=== PATIENT | female | born 1985 | race Caucasian/White ===

== ENCOUNTER 2017-07-18 11:50 | Inpatient (IN) | payer OTHER ==
[2017-07-18] MEDS ORDERED: Sodium Chloride 0.9% 10 ML Syringe FLUSH PRN (12:42)
[2017-07-18] MEDS ORDERED: Ondansetron 4 MG/2 ML SDV IVPUSH PRN (12:42)
[2017-07-18] MEDS ORDERED: Nalbuphine 20 MG/1 ML Amp IVPUSH PRN (12:42)
--- NOTE | 2017-07-18 12:42 | PCM.LDHP ---
L&D History of Present Illness - General Date of Service: 07/18/17 Admit Problem/Dx: Admission Diagnosis/Problem Admission Diagnosis/Problem Source of Information: Patient History Limitations: Reports: No Limitations - History of Present Illness Introduction:: Patient is a 32 y/o at 40 4/7 wks who presents for SROM. This occurred at about 0700 this morning. Has had minimal contractions since then. Otherwise doing well. 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: : 2 Para: 0 LMP (Approximate): Psychiatric History: Reports: Depression - Past Surgical History HEENT Surgical History: Reports: Tonsillectomy, Other (See Below) (rhinoplasty) Female Surgical History: Reports: Cystoscopy Social & Family History - Tobacco Use Smoking Status *Q: Former Smoker - Alcohol Use Alcohol Use History: No - Recreational Drug Use Recreational Drug Use: No H&P Review of Systems - Review of Systems: Review Of Systems: See Below General: Reports: No Symptoms Pulmonary: Reports: No Symptoms Cardiovascular: Reports: No Symptoms Gastrointestinal: Reports: No Symptoms Genitourinary: Reports: No Symptoms Musculoskeletal: Reports: No Symptoms Psychiatric: Reports: No Symptoms L&D Exam - Exam Exam: See Below - Vital Signs Vital Signs: Last Vital Signs Temp 36.9 C 07/18/17 12:31 Pulse 109 H 07/18/17 12:31 Resp 15 07/18/17 12:31 BP 143/94 H 07/18/17 12:31 Pulse Ox Weight: 86.001 kg - OB Specific Contraction Intensity: Irritability Movement: Active Heart Tones: Present Heart Tones per Min: 140 Heart Rate (FHR) Variability: Moderate (6-25 bmp) Presentation: Vertex - Izquierdo Score Izquierdo Score Cervix Position: Posterior Izquierdo Score Consistency: Soft Izquierdo Score Effacement: 51-70% Izquierdo Score Dilation: 1-2 cm Izquierdo Score Infant's Station: -2 Izquierdo Score Total: 6 - Exam General: Alert, Oriented, Cooperative Lungs: Clear to Auscultation, Normal Respiratory Effort Cardiovascular: Regular Rate, Regular Rhythm GI/Abdominal Exam: Soft, Non-Tender Genitourinary: Normal external exam Extremities: Normal Inspection Skin: Warm, Dry, Intact - Patient Data Result Diagrams: 07/18/17 13:00 - Problem List (1) 40 weeks gestation of SNOMED Code(s): 40783811 ICD Code: Z3A.40 - 40 WEEKS GESTATION OF Status: Acute Current Visit: Yes (2) PROM (premature rupture of membranes) SNOMED Code(s): 17621941 ICD Code: O42.90 - MARIANNE ROM, 7TH0 BETW RUPT & ONST LABR, UNSP WEEKS OF GEST Status: Acute Current Visit: Yes Qualifiers: PROM onset of labor timing: unspecified duration between rupture of membranes and onset of labor PROM gestational age: full term Qualified Code( s): O42.92 - Full-term premature rupture of membranes, unspecified as to length of time between rupture and onset of labor Problem List Initiated/Reviewed/Updated: Yes Assessment/Plan Comment:: 32 y/o at 40 4/7 wks who presents for SROM * Discussed with patient possibility of augmentation, but she declines at this time. Would like to wait a few more hours. If no painful contractions at that time have asked her to let us start pitocin to decrease duration of ROM and decrease chance of developing an infection * CBC and T&S * Pain management per patient preference * plan reviewed * Anticipate
[2017-07-18] MEDS ORDERED: Oxytocin/Lactated Ringers 10 UNIT/1,000 ML BAG IV SCH ×2 (12:45→16:30)
[2017-07-18] MEDS: Lactated Ringers 1,000 ML IV SCH (16:58)
--- NOTE | 2017-07-18 18:39 | PCM.SN ---
- Free Text/Narrative Note: 1600 Discussion held with patient in regards to contractions. Still not feeling much for contractions. Willing to proceed with pitocin augmentation at this time. Risks/benefits reviewed. Patient to let me know if any additional questions or concerns. Delphine Carroll MD
[2017-07-19] MEDS ORDERED: fentaNYL 100 MCG/2 ML SDV EPIDUR PRN (03:06)
[2017-07-19] MEDS ORDERED: Ondansetron 4 MG/2 ML SDV IVPUSH PRN (03:06)
[2017-07-19] MEDS ORDERED: ePHEDrine 50 MG/ML SDV IVPUSH PRN (03:06)
[2017-07-19] MEDS ORDERED: diphenhydrAMINE 50 MG/ML SDV IVPUSH PRN (03:06)
--- NOTE | 2017-07-19 03:25 | PCM.SN ---
- Free Text/Narrative Note: 0300 Patient complete. Now requesting epidural. Anesthesia here to assess patient. FHR 125, moderate variability, + accelerations, no decelerations. [place] q3-4. Anticipate Delphine Carroll MD
[2017-07-19] MEDS: Bupivacaine/fentaNYL/NS 100 ML Bag EPIDUR SCH ×2 (03:50→09:15)
--- NOTE | 2017-07-19 04:11 | PCM.PREANE ---
Preanesthetic Assessment - Procedure Proposed Procedure: CIARRA - Anesthesia/Transfusion/Family Hx Anesthesia History: Prior Anesthesia Without Reaction Family History of Anesthesia Reaction: No Transfusion History: No Prior Transfusion(s) Intubation History: Unknown Additional History: Patient does seem to have scoliosis with leftward rotation - Review of Systems General: No Symptoms Pulmonary: No Symptoms Cardiovascular: No Symptoms Gastrointestinal: No Symptoms Neurological: No Symptoms Other: Reports: None - Physical Assessment NPO Status Date: 07/19/17 NPO Status Time: 02:00 Respiratory Rate: 15 Vital Signs: Last Vital Signs Temp 36.9 C 07/18/17 12:31 Pulse 109 H 07/18/17 12:31 Resp 15 07/18/17 12:31 BP 143/94 H 07/18/17 12:31 Pulse Ox Height: 1.75 m Weight: 86.001 kg ASA Class: 2 Mental Status: Alert & Oriented x3 Airway Class: Mallampati = 2 Dentition: Reports: Normal Dentition Thyro-Mental Finger Breadths: 3 Mouth Opening Finger Breadths: 3 ROM/Head Extension: Full Lungs: Clear to Auscultation, Normal Respiratory Effort Cardiovascular: Regular Rate, Regular Rhythm - Lab Values: Laboratory Last Values WBC 9.44 K/mm3 (3.98-10.04) 07/18/17 13:00 RBC 3.71 M/mm3 (3.98-5.22) L 07/18/17 13:00 Hgb 12.1 gm/L (11.2-15.7) 07/18/17 13:00 Hct 35.7 % (34.1-44.9) 07/18/17 13:00 MCV 96.2 fl (79.4-94.8) H 07/18/17 13:00 MCH 32.6 pg (25.6-32.2) H 07/18/17 13:00 MCHC 33.9 g/dl (32.2-35.5) 07/18/17 13:00 RDW Std Deviation 41.9 fL (36.4-46.3) 07/18/17 13:00 Plt Count 179 K/mm3 (182-369) L 07/18/17 13:00 MPV 10.6 fl (9.4-12.3) 07/18/17 13:00 Blood Type O POSITIVE 07/18/17 13:00 Gel Antibody Screen Negative 07/18/17 13:00 - Allergies Allergies/Adverse Reactions: Allergies Allergy/AdvReac Type Severity Reaction Status Date / Time No Known Allergies Allergy Verified 07/18/17 12:33 - Blood Blood Available: No Product(s) Available: None - Anesthesia Plan Pre-Op Medication Ordered: None - Acknowledgements Anesthesia Type Planned: Epidural Pt an Appropriate Candidate for the Planned Anesthesia: Yes Alternatives and Risks of Anesthesia Discussed w Pt/Guardian: Yes Pt/Guardian Understands and Agrees with Anesthesia Plan: Yes 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: Psychiatric History: Reports: Depression - Past Surgical History HEENT Surgical History: Reports: Tonsillectomy, Other (See Below) (rhinoplasty) Female Surgical History: Reports: Cystoscopy - SUBSTANCE USE Smoking Status *Q: Former Smoker Tobacco Use Within Last Twelve Months: Cigarettes Recreational Drug Use History: No - HOME MEDS Home Medications: Home Meds Fish Oil/[place]-3 Fatty Acids [Fish Oil 1,000 MG] 07/18/17 [History] L.acidoph,Paracasei, B.lactis [Probiotic] 1 each PO 07/18/17 [History] Vits #93/Iron Fum/FA [ Formula Tablet] 07/18/17 [History] - CURRENT (IN HOUSE) MEDS Current Meds: Current Medications Diphenhydramine HCl (Benadryl) 25 mg IVPUSH Q6H PRN PRN Reason: Pruritis Ephedrine Sulfate (Ephedrine Sulfate) 5 mg IVPUSH ASDIRECTED PRN PRN Reason: Hypotension Fentanyl (Sublimaze) 100 mcg EPIDUR Q3H PRN PRN Reason: Pain Last Admin: 07/19/17 03:49 Dose: 100 mcg Fentanyl/Bupivacaine HCl (Fentanyl/Bupivacaine/Ns 2 Mcg-0.125% 100 Ml) 100 ml EPIDUR ASDIRECTED CITLALLI Last Admin: 07/19/17 03:50 Dose: 100 ml Lactated Ringer's (Ringers, Lactated) 1,000 mls @ 30 mls/hr IV ASDIRECTED CITLALLI Last Infusion: 07/18/17 21:37 Dose: 0 mls/hr Oxytocin/Lactated Ringer's (Pitocin In Lr 10 Units/1,000 Ml) 10 unit in 1,000 mls @ 500 mls/hr IV .CONTINUOUS CITLALLI Oxytocin/Lactated Ringer's (Pitocin In Lr 10 Units/1,000 Ml) 10 unit in 1,000 mls @ 12 mls/hr IV TITRATE CITLALLI; 2 MUNITS/MIN PRN Reason: Protocol Last Titration: 07/18/17 21:15 Dose: 6 munits/min, 36 mls/hr Nalbuphine HCl (Nubain) 10 mg IVPUSH Q2H PRN PRN Reason: Pain (moderate 4-6) Ondansetron HCl (Zofran) 4 mg IVPUSH Q4H PRN PRN Reason: Nausea/Vomiting Ondansetron HCl (Zofran) 4 mg IVPUSH ONETIME PRN PRN Reason: Nausea/Vomiting Sodium Chloride (Saline Flush) 10 ml FLUSH ASDIRECTED PRN PRN Reason: Keep Vein Open
--- NOTE | 2017-07-19 04:57 | PCM.PNLD ---
Labor Progress Note - VS & Meds Vital Signs: Last Vital Signs Temp 36.9 C 07/18/17 12:31 Pulse 109 H 07/18/17 12:31 Resp 15 07/19/17 04:10 BP 143/94 H 07/18/17 12:31 Pulse Ox Active Medications: Current Medications Diphenhydramine HCl (Benadryl) 25 mg IVPUSH Q6H PRN PRN Reason: Pruritis Ephedrine Sulfate (Ephedrine Sulfate) 5 mg IVPUSH ASDIRECTED PRN PRN Reason: Hypotension Fentanyl (Sublimaze) 100 mcg EPIDUR Q3H PRN PRN Reason: Pain Last Admin: 07/19/17 03:49 Dose: 100 mcg Fentanyl/Bupivacaine HCl (Fentanyl/Bupivacaine/Ns 2 Mcg-0.125% 100 Ml) 100 ml EPIDUR ASDIRECTED CITLALLI Last Admin: 07/19/17 03:50 Dose: 100 ml Lactated Ringer's (Ringers, Lactated) 1,000 mls @ 30 mls/hr IV ASDIRECTED CITLALLI Last Infusion: 07/18/17 21:37 Dose: 0 mls/hr Oxytocin/Lactated Ringer's (Pitocin In Lr 10 Units/1,000 Ml) 10 unit in 1,000 mls @ 500 mls/hr IV .CONTINUOUS CITLALLI Oxytocin/Lactated Ringer's (Pitocin In Lr 10 Units/1,000 Ml) 10 unit in 1,000 mls @ 12 mls/hr IV TITRATE CITLALLI; 2 MUNITS/MIN PRN Reason: Protocol Last Titration: 07/18/17 21:15 Dose: 6 munits/min, 36 mls/hr Nalbuphine HCl (Nubain) 10 mg IVPUSH Q2H PRN PRN Reason: Pain (moderate 4-6) Ondansetron HCl (Zofran) 4 mg IVPUSH Q4H PRN PRN Reason: Nausea/Vomiting Ondansetron HCl (Zofran) 4 mg IVPUSH ONETIME PRN PRN Reason: Nausea/Vomiting Sodium Chloride (Saline Flush) 10 ml FLUSH ASDIRECTED PRN PRN Reason: Keep Vein Open - Uterine Contractions Uterine Monitoring Mode: External [place] Contraction Intensity: Moderate - Monitoring Monitor Mode: External Ultrasound Heart Rate (FHR) Baseline: 125 Heart Rate (FHR) Variability: Moderate (6-25 bmp) Accelerations: Present, 15x15 Decelerations: None Strip Review: Category I - Vaginal Exam Dilation (cm): 3-4 Effacement (Percent): 80 Station: 0 Cervical Position: Midposition - Labor Progress (Free Text) Labor Progress: Patient thought to be complete by nursing at about 315 and received an epidural. I just checked patient and found her to be 3-4 cm and 80%. Likely due to her pain and thin cervix pervious examiner thought she was complete. Continue pitocin per protocol. Currently at 6. Will sign out to yardage caller physician Dr. Sandoval in the AM.
[2017-07-19] MEDS: Lactated Ringers 1,000 ML IV SCH ×2 (05:05→06:46)
--- NOTE | 2017-07-19 11:38 | PCM.DEL ---
L & D Note - General Info Date of Service: 07/19/17 Mother's Due Date: 07/14/17 - Delivery Note Labor: Augmented by Oxytocin Delivery Outcome: Livebirth Infant Delivery Method: Spontaneous Vaginal Delivery-Single Presentation: Left Occiput Anterior (GARY) Nuchal Cord: None Prep: Povidone-Iodine (Betadine Anesthesia Type: Epidural Amniotic Fluid Description: Clear Episiotomy Type: None Laceration: 2nd Degree, Perineal (Second-degree midline repaired with 3-0 Vicryl ), Vaginal (First-degree Right sided vaginal repaired with 3-0 Vicryl) Suture type: Vicryl Suture size: 3-0 Placenta: Spontaneous, Manual Removal, Retained, Partial (2 small retained portions of the placenta removed manually) Cord: 3 Vessels Estimated Blood Loss: 400 : Bulb Syringe, Stimulated, Warmed, [place] Used Provider: Jeff Mars Score 1 min: 7 Score 5 min: 9 Post Delivery Events: Retained Placenta (Spontaneous delivery of the placenta with several small retained pieces that were manually removed.) Second Stage Interventions: Reports: Pushing Effectively, Pushing, Knee Chest Position Delivery Comments (Free Text/Narrative):: Stage I: Sherine Rogers was admitted for spontaneous rupture membranes on 07/18. On admission her cervix was dilated to 1 cm. She was GBS negative. She was having minimal contractions on admission and plan was discussed for augmentation of labor with Pitocin the patient initially declined. At approximately 1700 hrs. she accepted Pitocin augmentation. She was given an epidural for anesthesia. She was thought to be complete in the morning of hospital day #2 but on exam she was dilated to 3 cm with thinning of the cervix. Pitocin was continued for augmentation. She progressed to complete and pushing. Stage II: On 07/19/2017 she had a normal vaginal delivery of a live female at 1023. Apgars of 7 & 9. Weight of 3650 g (8 lbs 0.3 oz). Length was unavailable at time of the note. There was no nuchal cord. Infant was delivered in GARY position. The cord was doubly clamped and cut by father of the baby. Infant was placed on mother's abdomen. Stage III: She had a spontaneous delivery of an partial placenta in [place] presentation. There were several small pieces of retained placenta that were manually removed. Three vessel cord. She was given pitocin and fundal massage. She had a second-degree midline perineal and first-degree right sided vaginal wall laceration that were both repaired with 3-0 Vicryl. She had large amount of clot in the uterus after the repair that was manually removed and expressed. Mom and baby were stable to recovery. EBL of 400 mL. Gabe Sandoval MD 11:52 AM 07/19/2017 - Patient Data Vitals - Most Recent: Last Vital Signs Temp 36.9 C 07/18/17 12:31 Pulse 109 H 07/18/17 12:31 Resp 15 07/19/17 04:10 BP 143/94 H 07/18/17 12:31 Pulse Ox Weight - Most Recent: 86.001 kg I&O - Last 24 Hours: Intake & Output 07/18/17 07/19/17 07/19/17 22:59 06:59 14:59 Intake Total 0 Balance 0 Lab Results Last 24 Hours: Laboratory Results - last 24 hr 07/18/17 07/18/17 Range/Units 13:00 13:00 WBC 9.44 (3.98-10.04) K/mm3 RBC 3.71 L (3.98-5.22) M/mm3 Hgb 12.1 (11.2-15.7) gm/L Hct 35.7 (34.1-44.9) % MCV 96.2 H (79.4-94.8) fl MCH 32.6 H (25.6-32.2) pg MCHC 33.9 (32.2-35.5) g/dl RDW Std Deviation 41.9 (36.4-46.3) fL Plt Count 179 L (182-369) K/mm3 MPV 10.6 (9.4-12.3) fl Blood Type O POSITIVE Gel Antibody Screen Negative Med Orders - Current: Current Medications Diphenhydramine HCl (Benadryl) 25 mg IVPUSH Q6H PRN PRN Reason: Pruritis Ephedrine Sulfate (Ephedrine Sulfate) 5 mg IVPUSH ASDIRECTED PRN PRN Reason: Hypotension Fentanyl (Sublimaze) 100 mcg EPIDUR Q3H PRN PRN Reason: Pain Last Admin: 07/19/17 03:49 Dose: 100 mcg Fentanyl/Bupivacaine HCl (Fentanyl/Bupivacaine/Ns 2 Mcg-0.125% 100 Ml) 100 ml EPIDUR ASDIRECTED CITLALLI Last Admin: 07/19/17 09:15 Dose: 100 ml Lactated Ringer's (Ringers, Lactated) 1,000 mls @ 30 mls/hr IV ASDIRECTED CITLALLI Last Admin: 07/19/17 06:46 Dose: 999 mls/hr Oxytocin/Lactated Ringer's (Pitocin In Lr 10 Units/1,000 Ml) 10 unit in 1,000 mls @ 500 mls/hr IV .CONTINUOUS CITLALLI Oxytocin/Lactated Ringer's (Pitocin In Lr 10 Units/1,000 Ml) 10 unit in 1,000 mls @ 12 mls/hr IV TITRATE CITLALLI; 2 MUNITS/MIN PRN Reason: Protocol Last Titration: 07/19/17 09:11 Dose: 9 munits/min, 54 mls/hr Nalbuphine HCl (Nubain) 10 mg IVPUSH Q2H PRN PRN Reason: Pain (moderate 4-6) Ondansetron HCl (Zofran) 4 mg IVPUSH Q4H PRN PRN Reason: Nausea/Vomiting Ondansetron HCl (Zofran) 4 mg IVPUSH ONETIME PRN PRN Reason: Nausea/Vomiting Sodium Chloride (Saline Flush) 10 ml FLUSH ASDIRECTED PRN PRN Reason: Keep Vein Open - Problem List & Annotations (1) Vaginal delivery SNOMED Code(s): 050362435 Code(s): O80 - ENCOUNTER FOR FULL-TERM UNCOMPLICATED DELIVERY Status: Acute Current Visit: Yes (2) Second degree laceration of perineum, delivered, current hospitalization SNOMED Code(s): 008465151 Code(s): O70.1 - SECOND DEGREE PERINEAL LACERATION DURING DELIVERY Status: Acute Current Visit: Yes (3) First degree laceration of perineum, delivered, current hospitalization SNOMED Code(s): 105495000 Code(s): O70.0 - FIRST DEGREE PERINEAL LACERATION DURING DELIVERY Status: Acute Current Visit: Yes (4) 40 weeks gestation of SNOMED Code(s): 14576622 Code(s): Z3A.40 - 40 WEEKS GESTATION OF Status: Acute Current Visit: Yes (5) PROM (premature rupture of membranes) SNOMED Code(s): 07465340 Code(s): O42.90 - MARIANNE ROM, 7TH0 BETW RUPT & ONST LABR, UNSP WEEKS OF GEST Status: Acute Current Visit: Yes Qualifiers: PROM onset of labor timing: unspecified duration between rupture of membranes and onset of labor PROM gestational age: full term Qualified Code( s): O42.92 - Full-term premature rupture of membranes, unspecified as to length of time between rupture and onset of labor - Problem List Review Problem List Initiated/Reviewed/Updated: Yes - My Orders Last 24 Hours: My Active Orders 07/19/17 11:24 Patient Status Manage Transfer [TRANSFER] Routine - Assessment Assessment:: Patient doing well after delivery. Patient had small amount of retained placenta that was removed manually. There was moderate amount of clot within the uterus after repair of the perineal lacerations that was manually removed and expressed. Total blood loss estimated at 400 mL's. Plan to repeat CBC at approximately 1700 hrs. Assist patient with breast-feeding as needed. - Plan Plan:: 32 y/o at 40 4/7 wks who presents for SROM * Discussed with patient possibility of augmentation, but she declines at this time. Would like to wait a few more hours. If no painful contractions at that time have asked her to let us start pitocin to decrease duration of ROM and decrease chance of developing an infection * CBC and T&S * Pain management per patient preference * plan reviewed * Anticipate
[2017-07-19] MEDS ORDERED: Oxytocin/Lactated Ringers 10 UNIT/1,000 ML BAG IV SCH (11:46)
[2017-07-19] MEDS ORDERED: Lanolin 100% Cream 7 GM Tube TOP PRN (11:46)
[2017-07-19] MEDS ORDERED: Magnesium Hydroxide 400 MG/5 ML Susp 30 ML Cup PO PRN (11:46)
[2017-07-19] MEDS ORDERED: Acetaminophen 325 MG Tab PO PRN (11:46)
[2017-07-19] MEDS ORDERED: Lactated Ringers 1,000 ML IV SCH (11:46)
[2017-07-19] MEDS ORDERED: Docusate Sodium 100 MG Cap PO PRN (11:46)
[2017-07-19] MEDS ORDERED: Simethicone 80 MG Tab.Chew PO PRN (11:46)
[2017-07-19] MEDS ORDERED: Witch Hazel Medicated Pads 100/Jar TOP PRN (11:46)
[2017-07-19] MEDS ORDERED: Hydrocortisone Acetate 25 MG Supp RECTAL PRN (11:46)
[2017-07-19] MEDS ORDERED: Benzocaine/Menthol 20%-0.5% Spray 56 GM Canister TOP PRN (11:46)
[2017-07-19] MEDS: Prenatal Multivitamin with Calcium/Folic Acid/Iron Tab PO SCH (14:56)
[2017-07-19] MEDS: Ibuprofen 600 MG Tab PO PRN (18:03)
[2017-07-19] MEDS ORDERED: Bupivacaine 0.25% 10 ML SDV ONE (22:22)
[2017-07-20] MEDS: Ibuprofen 600 MG Tab PO PRN ×2 (00:32→16:36)
--- NOTE | 2017-07-20 10:49 | PCM.SN ---
- Free Text/Narrative Note: Post Progress Note PPD # 1 Subjective: Doing well overall. Ambulating without difficulty. Lochia minimal. Voiding without difficulty. Tolerating regular diet. Denies any nausea or vomiting. Pain controlled with oral medications. Reports some muscle soreness in her upper back and shoulders. Breast feeding with minimal difficulty. Objective: Vitals: Last Vital Signs Temp 36.7 C 07/20/17 04:04 Pulse 95 07/20/17 04:04 Resp 16 07/20/17 04:04 BP 121/73 07/20/17 04:04 Pulse Ox 98 07/20/17 04:04 Physical Exam General: Alert and oriented, no acute distress Lungs: Clear to auscultation bilaterally Heart: Regular rate and rhythm Abdomen: Soft, minimal appropriate tenderness, non-distended, fundus midline, nontender, and below the umbilicus Extremities: No edema ASSESSMENT: 32-year-old female G 2P 1011 s/p normal vaginal delivery PPD #1, complicated by prolonged rupture of membranes PLAN: Doing well Breast feeding with minimal difficulty. Assist as needed Lochia minimal. Continue to monitor for appropriate lochia. Continue routine care Anticipate discharge home tomorrow Gabe Sandoval MD 10:49 AM 07/20/2017
[2017-07-20] MEDS: Prenatal Multivitamin with Calcium/Folic Acid/Iron Tab PO SCH (12:54)
[2017-07-20] MEDS: Benzocaine/Cetylpyridinium/Menthol Lozenge MUCMEM PRN ×3 (12:54→23:00)
[2017-07-20] MEDS: Ferrous Sulfate 325 MG Tab PO SCH (12:54)
--- NOTE | 2017-07-20 16:33 | PCM48HPAN ---
Post Anesthesia Note - EVALUATION WITHIN 48HRS OF ANESTHETIC Vital Signs in Normal Range: Yes Patient Participated in Evaluation: Yes Respiratory Function Stable: Yes Airway Patent: Yes Cardiovascular Function Stable: Yes Hydration Status Stable: Yes Pain Control Satisfactory: Yes Nausea and Vomiting Control Satisfactory: Yes Mental Status Recovered: Yes
[2017-07-21] MEDS: Ferrous Sulfate 325 MG Tab PO SCH ×2 (01:47→07:53)
[2017-07-21] MEDS: Ibuprofen 600 MG Tab PO PRN (02:52)
--- NOTE | 2017-07-21 10:46 | PCM.SN ---
- Free Text/Narrative Note: Post Progress Note PPD # 2 Subjective: Doing well overall. Ambulating without difficulty. Lochia minimal. Voiding without difficulty. Tolerating regular diet. Pain controlled with oral medications. Patient reports that her muscle pain in her shoulders and back has resolved with heat therapy and massage. Breast feeding with minimal difficulty. Objective: Vitals: Last Vital Signs Temp 37.4 C 07/21/17 03:04 Pulse 103 H 07/21/17 03:04 Resp 16 07/21/17 03:04 BP 134/93 H 07/21/17 03:04 Pulse Ox 98 07/21/17 03:04 Physical Exam General: Alert and oriented, no acute distress Lungs: Clear to auscultation bilaterally Heart: Regular rate and rhythm Abdomen: Soft, minimal appropriate tenderness, non-distended, fundus midline, nontender, and below the umbilicus Extremities: No edema ASSESSMENT: 32-year-old female G 2P 1011 s/p normal vaginal delivery PPD #2, complicated by prolonged rupture of membranes and acute blood loss anemia PLAN: Doing well Breast feeding with minimal difficulty. Assist as needed Lochia minimal. Continue to monitor for appropriate lochia. Continue routine care Continue use of iron supplementation for 6 weeks after delivery Anticipate discharge home today Gabe Sandoval MD 10:46 AM 07/21/2017
--- NOTE | 2017-07-21 10:55 | PCM.DCSUM1 ---
Discharge Summary - Hospital Course Free Text/Narrative:: Stage I: Sherine Rogers was admitted for spontaneous rupture membranes on 07/18. On admission her cervix was dilated to 1 cm. She was GBS negative. She was having minimal contractions on admission and plan was discussed for augmentation of labor with Pitocin the patient initially declined. At approximately 1700 hrs. she accepted Pitocin augmentation. She was given an epidural for anesthesia. She was thought to be complete in the morning of hospital day #2 but on exam she was dilated to 3 cm with thinning of the cervix. Pitocin was continued for augmentation. She progressed to complete and pushing. Stage II: On 07/19/2017 she had a normal vaginal delivery of a live female at 1023. Apgars of 7 & 9. Weight of 3650 g (8 lbs 0.3 oz). Length was unavailable at time of the note. There was no nuchal cord. Infant was delivered in GRAY position. The cord was doubly clamped and cut by father of the baby. Infant was placed on mother's abdomen. Stage III: She had a spontaneous delivery of an partial placenta in [place] presentation. There were several small pieces of retained placenta that were manually removed. Three vessel cord. She was given pitocin and fundal massage. She had a second-degree midline perineal and first-degree right sided vaginal wall laceration that were both repaired with 3-0 Vicryl. She had large amount of clot in the uterus after the repair that was manually removed and expressed. Mom and baby were stable to recovery. EBL of 400 mL. HPI Initial Comments: Stage I: Sherine Rogers was admitted for spontaneous rupture membranes on 07/18. On admission her cervix was dilated to 1 cm. She was GBS negative. She was having minimal contractions on admission and plan was discussed for augmentation of labor with Pitocin the patient initially declined. At approximately 1700 hrs. she accepted Pitocin augmentation. She was given an epidural for anesthesia. She was thought to be complete in the morning of hospital day #2 but on exam she was dilated to 3 cm with thinning of the cervix. Pitocin was continued for augmentation. She progressed to complete and pushing. Stage II: On 07/19/2017 she had a normal vaginal delivery of a live female infant at 1023. Apgars of 7 & 9. Weight of 3650 g (8 lbs 0.3 oz). Length was unavailable at time of the note. There was no nuchal cord. Infant was delivered in GARY position. The cord was doubly clamped and cut by father of the baby. was placed on mother's abdomen. Stage III: She had a spontaneous delivery of an partial placenta in [place] presentation. There were several small pieces of retained placenta that were manually removed. Three vessel cord. She was given pitocin and fundal massage. She had a second-degree midline perineal and first-degree right sided vaginal wall laceration that were both repaired with 3-0 Vicryl. She had large amount of clot in the uterus after the repair that was manually removed and expressed. Mom and baby were stable to recovery. EBL of 400 mL. Brief History: Stage I: Sherine Rogers was admitted for spontaneous rupture membranes on 07/18/2017. On admission her cervix was dilated to 1 cm. She was GBS negative. She was having minimal contractions on admission and plan was discussed for augmentation of labor with Pitocin the patient initially declined. At approximately 1700 hrs. she accepted Pitocin augmentation. She was given an epidural for anesthesia. She was thought to be complete in the morning of hospital day #2 but on exam she was dilated to 3 cm with thinning of the cervix. Pitocin was continued for augmentation. She progressed to complete and pushing. Stage II: On 07/19/2017 she had a normal vaginal delivery of a live female at 1023. Apgars of 7 & 9. Weight of 3650 g (8 lbs 0.3 oz). Length was unavailable at time of the note. There was no nuchal cord. was delivered in GARY position. The cord was doubly clamped and cut by father of the baby. Infant was placed on mother's abdomen. Stage III: She had a spontaneous delivery of an partial placenta in [place] presentation. There were several small pieces of retained placenta that were manually removed. Three vessel cord. She was given pitocin and fundal massage. She had a second-degree midline perineal and first-degree right sided vaginal wall laceration that were both repaired with 3-0 Vicryl. She had large amount of clot in the uterus after the repair that was manually removed and expressed. Mom and baby were stable to recovery. EBL of 400 mL. - Discharge Data Discharge Date: 07/21/17 Discharge Disposition: Home, Self-Care 01 Condition: Good - Discharge Diagnosis/Problem(s) (1) Vaginal delivery SNOMED Code(s): 752312826 ICD Code: O80 - ENCOUNTER FOR FULL-TERM UNCOMPLICATED DELIVERY Status: Acute Current Visit: Yes (2) Second degree laceration of perineum, delivered, current hospitalization SNOMED Code(s): 279398936 ICD Code: O70.1 - SECOND DEGREE PERINEAL LACERATION DURING DELIVERY Status : Acute Current Visit: Yes (3) First degree laceration of perineum, delivered, current hospitalization SNOMED Code(s): 126045371 ICD Code: O70.0 - FIRST DEGREE PERINEAL LACERATION DURING DELIVERY Status: Acute Current Visit: Yes (4) 40 weeks gestation of SNOMED Code(s): 89347502 ICD Code: Z3A.40 - 40 WEEKS GESTATION OF Status: Acute Current Visit: Yes (5) PROM (premature rupture of membranes) SNOMED Code(s): 63377594 ICD Code: O42.90 - MARIANNE ROM, 7TH0 BETW RUPT & ONST LABR, UNSP WEEKS OF GEST Status: Acute Current Visit: Yes Qualifiers: PROM onset of labor timing: unspecified duration between rupture of membranes and onset of labor PROM gestational age: full term Qualified Code( s): O42.92 - Full-term premature rupture of membranes, unspecified as to length of time between rupture and onset of labor (6) Acute blood loss anemia SNOMED Code(s): 130899422 ICD Code: D62 - ACUTE POSTHEMORRHAGIC ANEMIA Status: Acute Current Visit : Yes - Patient Summary/Data Complications: None Consults: None Hospital Course: Stage I: Sherine Rogers was admitted for spontaneous rupture membranes on 07/18. On admission her cervix was dilated to 1 cm. She was GBS negative. She was having minimal contractions on admission and plan was discussed for augmentation of labor with Pitocin the patient initially declined. At approximately 1700 hrs. she accepted Pitocin augmentation. She was given an epidural for anesthesia. She was thought to be complete in the morning of hospital day #2 but on exam she was dilated to 3 cm with thinning of the cervix. Pitocin was continued for augmentation. She progressed to complete and pushing. Stage II: On 07/19/2017 she had a normal vaginal delivery of a live female infant at 1023. Apgars of 7 & 9. Weight of 3650 g (8 lbs 0.3 oz). Length was unavailable at time of the note. There was no nuchal cord. was delivered in GARY position. The cord was doubly clamped and cut by father of the baby. was placed on mother's abdomen. Stage III: She had a spontaneous delivery of an partial placenta in [place] presentation. There were several small pieces of retained placenta that were manually removed. Three vessel cord. She was given pitocin and fundal massage. She had a second-degree midline perineal and first-degree right sided vaginal wall laceration that were both repaired with 3-0 Vicryl. She had large amount of clot in the uterus after the repair that was manually removed and expressed. Mom and baby were stable to recovery. EBL of 400 mL. Patient was doing well in her course on day #1. She was able to have her pain controlled with oral pain medications. She only reported some mild shoulder and back muscle soreness. She was ambulating without difficulty. She was tolerating a regular diet without any nausea or vomiting. She was voiding without difficulty. She reports that she is having minimal amount of lochia. She was noted to have another acute blood loss anemia with a hematocrit of 29.2, which was down from her admission hematocrit of 35.7, and she was started on iron supplementation. She was complaining of a sore throat on day #1 and was started on throat lozenges to help with the pain associated with this. She denies any fevers or chills. She denies any other cold or flulike symptoms. She denies any nausea or vomiting. On day #2 she continued to be doing well with her course. She continued to meet all milestones. She desired to be discharged home in the morning of day #2. She will follow up with Dr. Carroll in 6 weeks or earlier as needed for routine care. - Patient Instructions Diet: Regular Diet as Tolerated Activity: As Tolerated Activity, Other: Nothing in vagina for 6 weeks Driving: May Drive Today Showering/Bathing: May Shower, No Tub Bathing/Swimming Notify Provider of: Fever, Increased Pain, Swelling and Redness, Drainage, Nausea and/or Vomiting - Discharge Plan Prescriptions/Med Rec: Ferrous Sulfate 325 mg PO BIDMEALS #60 tablet Home Medications: Home Meds Fish Oil/[place]-3 Fatty Acids [Fish Oil 1,000 MG] 07/18/17 [History] L.acidoph,Paracasei, B.lactis [Probiotic] 1 each PO 07/18/17 [History] Vits #93/Iron Fum/FA [ Formula Tablet] 07/18/17 [History] Acetaminophen [Tylenol] 650 mg PO Q6H PRN tablet 07/21/17 [Rx] Benzocaine/Menthol [Dermoplast Pain Relief [place]] 1 spray TOP ASDIRECTED PRN canister 07/21/17 [Rx] Docusate Sodium [Colace] 100 mg PO BID PRN cap 07/21/17 [Rx] Ferrous Sulfate 325 mg PO BIDMEALS #60 tablet 07/21/17 [Rx] Hydrocortisone Acetate [Anucort-HC] 25 mg RECTAL BID PRN supp 07/21/17 [Rx] Ibuprofen [IJD: Ibuprofen] 600 mg PO Q6H PRN tablet 07/21/17 [Rx] Lanolin [Lansinoh HPA] 1 applic TOP ASDIRECTED PRN tube 07/21/17 [Rx] Witch Shania [Tucks] 1 pad TOP ASDIRECTED PRN pad 07/21/17 [Rx] Patient Handouts: and Inducing , Vaginal Delivery, and Mastitis Referrals: Delphine Carroll MD [Primary Care Provider] - (Follow-up in 6 weeks or earlier as needed for routine care.) - Discharge Summary/Plan Comment DC Time >30 min.: No - Patient Data Vitals - Most Recent: Last Vital Signs Temp 37.4 C 07/21/17 03:04 Pulse 103 H 07/21/17 03:04 Resp 16 07/21/17 03:04 BP 134/93 H 07/21/17 03:04 Pulse Ox 98 07/21/17 03:04 Weight - Most Recent: 86.001 kg I&O - Last 24 hours: Intake & Output 07/20/17 07/21/17 07/21/17 22:59 06:59 14:59 Intake Total 600 120 Balance 600 120 Med Orders - Current: Current Medications Acetaminophen (Tylenol) 650 mg PO Q6H PRN PRN Reason: mild pain or fever Last Admin: 07/20/17 00:34 Dose: 650 mg Benzocaine/Menthol (Dermoplast Pain Relief [place]) 0 gm TOP ASDIRECTED PRN PRN Reason: Perineal Comfort Measure Last Admin: 07/19/17 14:53 Dose: 1 can Benzocaine/Menthol (Cepacol Sore Throat) 1 lozenge MUCMEM 5XDAY PRN PRN Reason: Sore throat Last Admin: 07/20/17 23:00 Dose: 1 lozenge Docusate Sodium (Colace) 100 mg PO BID PRN PRN Reason: Constipation Emollient Ointment (Lansinoh Hpa) 0 gm TOP ASDIRECTED PRN PRN Reason: Sore Nipples Last Admin: 07/19/17 14:53 Dose: 1 tube Ferrous Sulfate (Ferrous Sulfate) 325 mg PO BIDMEALS [facility] Last Admin: 07/21/17 07:53 Dose: 325 mg Hydrocortisone Acetate (Anucort-Hc) 25 mg RECTAL BID PRN PRN Reason: Hemorrhoid pain Lactated Ringer's (Ringers, Lactated) 1,000 mls @ 125 mls/hr IV ASDIRECTED CITLALLI Oxytocin/Lactated Ringer's (Pitocin In Lr 10 Units/1,000 Ml) 10 unit in 1,000 mls @ 100 mls/hr IV TITRATE CITLALLI PRN Reason: Protocol Ibuprofen (Motrin) 600 mg PO Q6H PRN PRN Reason: Mild pain or fever Last Admin: 07/21/17 02:52 Dose: 600 mg Magnesium Hydroxide (Milk Of Magnesia) 30 ml PO BEDTIME PRN PRN Reason: Constipation Prenat Multivit/[place]/Iron/Folic Ac ( Plus Iron) 1 each PO DAILY [facility] Last Admin: 07/20/17 12:54 Dose: 1 each Simethicone (Simethicone) 80 mg PO Q4H PRN PRN Reason: Gas Witch Shania (Tucks) 1 pad TOP ASDIRECTED PRN PRN Reason: Hemorrhoid pain Last Admin: 07/19/17 14:53 Dose: 1 tub Discontinued Medications Diphenhydramine HCl (Benadryl) 25 mg IVPUSH Q6H PRN PRN Reason: Pruritis Ephedrine Sulfate (Ephedrine Sulfate) 5 mg IVPUSH ASDIRECTED PRN PRN Reason: Hypotension Fentanyl (Sublimaze) 100 mcg EPIDUR Q3H PRN PRN Reason: Pain Last Admin: 07/19/17 03:49 Dose: 100 mcg Fentanyl/Bupivacaine HCl (Fentanyl/Bupivacaine/Ns 2 Mcg-0.125% 100 Ml) 100 ml EPIDUR ASDIRECTED CITLALLI Last Admin: 07/19/17 09:15 Dose: 100 ml Lactated Ringer's (Ringers, Lactated) 1,000 mls @ 30 mls/hr IV ASDIRECTED CITLALLI Last Admin: 07/19/17 06:46 Dose: 999 mls/hr Oxytocin/Lactated Ringer's (Pitocin In Lr 10 Units/1,000 Ml) 10 unit in 1,000 mls @ 500 mls/hr IV .CONTINUOUS CITLALLI Last Infusion: 07/19/17 11:30 Dose: 250 mls/hr Oxytocin/Lactated Ringer's (Pitocin In Lr 10 Units/1,000 Ml) 10 unit in 1,000 mls @ 12 mls/hr IV TITRATE CITLALLI; 2 MUNITS/MIN PRN Reason: Protocol Last Titration: 07/19/17 10:30 Dose: 500 mls/hr Nalbuphine HCl (Nubain) 10 mg IVPUSH Q2H PRN PRN Reason: Pain (moderate 4-6) Ondansetron HCl (Zofran) 4 mg IVPUSH Q4H PRN PRN Reason: Nausea/Vomiting Ondansetron HCl (Zofran) 4 mg IVPUSH ONETIME PRN PRN Reason: Nausea/Vomiting Sodium Chloride (Saline Flush) 10 ml FLUSH ASDIRECTED PRN PRN Reason: Keep Vein Open *Q Meaningful Use (DIS) - VTE *Q VTE Criteria *Q: - Stroke *Q Stroke Criteria *Q: - AMI *Q AMI Criteria *Q:
== END 2017-07-21 15:00 | disposition home or self-care (01) | DRG 774 ==
LOC: JD.OBCHECK 11:50 → JD.OB 11:52 → JD.OBCHECK 12:42 → UNDOADMOB 12:43 → JD.OB 12:43 → OBSVTOIN 07-19 10:23
PROVIDERS: ADMIT Obstetrics & Gynecology; ATTEND Obstetrics & Gynecology
PROC: 10E0XZZ Delivery of Products of Conception, External Approach (ICD-10-PCS; principal; 2017-07-19)
PROC: 0KQM0ZZ Repair Perineum Muscle, Open Approach (ICD-10-PCS; 2017-07-19)
PROC: 00HU33Z Insertion of Infusion Device into Spinal Canal, Percutaneous Approach (ICD-10-PCS; 2017-07-19)
PROC: 3E0R3BZ Introduction of Anesthetic Agent into Spinal Canal, Percutaneous Approach (ICD-10-PCS; 2017-07-19)
PROC: 0UQGXZZ Repair Vagina, External Approach (ICD-10-PCS; 2017-07-19)
DX: O42.92 Full-term premature rupture of membranes, unspecified as to length of time between rupture and onset of labor (principal); O72.2 Delayed and secondary postpartum hemorrhage; D62 Acute posthemorrhagic anemia; O70.0 First degree perineal laceration during delivery; Z37.0 Single live birth; Z3A.41 41 weeks gestation of pregnancy; O48.0 Post-term pregnancy; Z87.891 Personal history of nicotine dependence; O70.1 Second degree perineal laceration during delivery; O99.02 Anemia complicating childbirth
CPT/HCPCS: 36415; 59300; 59409; 85025; 85027; 86850; 86900; 86901; A9270-GY; J2590; J3010; J7120

== ENCOUNTER 2021-07-18 07:13 | Inpatient (IN) | payer OTHER ==
[2021-07-18] MEDS ORDERED: Nalbuphine 10 MG/1 ML Vial IVPUSH PRN (07:33)
[2021-07-18] MEDS ORDERED: Ondansetron 4 MG/2 ML SDV IVPUSH PRN (07:33)
[2021-07-18] MEDS ORDERED: Sodium Chloride 0.9% 10 ML Syringe FLUSH PRN (07:33)
[2021-07-18] MEDS ORDERED: Oxytocin/Lactated Ringers 10 UNIT/1,000 ML BAG IV SCH ×2 (07:45)
--- NOTE | 2021-07-18 08:05 | PCM.LDHP ---
L&D History of Present Illness - General Date of Service: 07/18/21 Admit Problem/Dx: Patient Status Order with Admit Dx/Problem 07/18/21 07:33 Patient Status [ADT] Routine Admission Diagnosis/Problem Admission Diagnosis/Problem Source of Information: Patient History Limitations: Reports: No Limitations - History of Present Illness Introduction:: Patient is a 36 y/o at 40 1/7 wks who presents for IOL as recommended by [facility] for AMA. Patient with history of 40 5/7 wks with first . Had a PLTCS at 39 0/7 wks with second child due to ventriculomegaly and associated complications. Delivered that baby in [place] due to need for Neurosurgery. No other major issues this . Doing well currently. - Related Data Allergies/Adverse Reactions: Allergies Allergy/AdvReac Type Severity Reaction Status Date / Time No Known Allergies Allergy Verified 07/18/21 07:33 Home Medications: Home Meds Fish Oil/[place]-3 Fatty Acids [Fish Oil 1,000 MG] 1 tab PO DAILY 07/18/17 [History] L.acidoph,Paracasei, B.lactis [Probiotic] 1 each PO DAILY 07/18/17 [History] Vits #93/Iron Fum/FA [ Formula Tablet] 1 tab PO DAILY 07/18/17 [History] Ferrous Sulfate 325 mg PO BIDMEALS #60 tablet 07/21/17 [Rx] Cholecalciferol (Vitamin D3) [Vitamin D3] 1 cap PO DAILY 07/18/21 [History] Past Medical History [employer] History: Reports: , Spontaneous : 4 Para: 2 LMP (Approximate): Psychiatric History: Reports: Depression - Past Surgical History HEENT Surgical History: Reports: Tonsillectomy, Other (See Below) (rhinoplasty) Female Surgical History: Reports: Section, Cystoscopy Social & Family History - Tobacco Use Tobacco Use Status *Q: Former Tobacco User - Caffeine Use Caffeine Use: Reports: Coffee, Soda - Alcohol Use Alcohol Use History: No - Recreational Drug Use Recreational Drug Use: No H&P Review of Systems - Review of Systems: Review Of Systems: See Below General: Reports: No Symptoms Pulmonary: Reports: No Symptoms Cardiovascular: Reports: No Symptoms Gastrointestinal: Reports: No Symptoms Genitourinary: Reports: No Symptoms Musculoskeletal: Reports: No Symptoms Psychiatric: Reports: No Symptoms Neurological: Reports: No Symptoms L&D Exam - Exam Exam: See Below - Vital Signs Weight: 85.729 kg - OB Specific Contraction Intensity: Irritability Movement: Active Heart Tones: Present Heart Tones per Min: 145 Heart Rate (FHR) Variability: Moderate (6-25 bpm) - Izquierdo Score Izquierdo Score Cervix Position: Posterior Izquierdo Score Consistency: Medium Izquierdo Score Effacement: 51-70% Izquierdo Score Dilation: Closed (0.5 cm) Izquierdo Score Infant's Station: -2 Izquierdo Score Total: 4 - Exam General: Alert, Oriented, Cooperative Lungs: Clear to Auscultation, Normal Respiratory Effort Cardiovascular: Regular Rate, Regular Rhythm GI/Abdominal Exam: Soft, Non-Tender Genitourinary: Normal external exam Extremities: Normal Inspection Skin: Warm, Dry, Intact - Patient Data Result Diagrams: 07/18/21 08:26 - Problem List (1) Post-dates SNOMED Code(s): 30221707 ICD Code: O48.0 - POST-TERM Status: Acute Current Visit: Yes (2) History of delivery SNOMED Code(s): 897803913 ICD Code: Z98.891 - HISTORY OF UTERINE SCAR FROM PREVIOUS SURGERY Status: Acute Current Visit: Yes (3) History of vaginal delivery SNOMED Code(s): 498597543 ICD Code: HIP4790 - Status: Acute Current Visit: Yes (4) Desires (vaginal after ) trial SNOMED Code(s): 639702224, 985355956 ICD Code: O34.219 - MATERNAL CARE FOR UNSP TYPE SCAR FROM PREVIOUS DEL Status: Acute Current Visit: Yes Problem List Initiated/Reviewed/Updated: Yes Orders Last 24hrs: Active Orders 24 hr Category Date Time Status Patient Status [ADT] Routine ADT 07/18/21 07:33 Active Activity as Tolerated [RC] PFP Care 07/18/21 07:33 Active Communication Order [RC] ASDIRECTED Care 07/18/21 07:33 Active Heart Tones [RC] ASDIRECTED Care 07/18/21 07:34 Active Non Stress Test [RC] PER UNIT ROUTINE Care 07/18/21 07:33 Active Notify Provider [RC] PFP Care 07/18/21 07:33 Active Notify Provider [RC] PRN Care 07/18/21 07:33 Active Peripheral IV Care [RC] . DIRECTED Care 07/18/21 07:34 Active Pump Management, Intrathecal [RC] ASDIRECTED Care 07/18/21 07:35 Active Vital Signs [RC] PER UNIT ROUTINE Care 07/18/21 07:33 Active Regular Diet [DIET] Diet 07/18/21 Breakfast Active CBC WITH AUTO DIFF [HEME] Stat Lab 07/18/21 07:33 Ordered CORONAVIRUS COVID-19 EYAD [MOLEC] Stat Lab 07/18/21 07:38 Ordered RAPID PLASMA REAGIN,RPR [CHEM] Routine Lab 07/18/21 07:33 Ordered TYPE AND SCREEN [BBK] Stat Lab 07/18/21 07:33 Ordered Lactated Ringers [Ringers, Lactated] 1,000 ml Med 07/18/21 07:45 Active IV ASDIRECTED Nalbuphine [Nubain] Med 07/18/21 07:33 Active 10 mg IVPUSH Q2H PRN Ondansetron [Zofran] Med 07/18/21 07:33 Active 4 mg IVPUSH Q4H PRN Oxytocin/Lactated Ringers [Pitocin in LR 10 Units/1,000 Med 07/18/21 07:45 Active ML] 10 unit in 1,000 ml IV .CONTINUOUS Oxytocin/Lactated Ringers [Pitocin in LR 10 Units/1,000 Med 07/18/21 07:45 Active ML] 10 unit in 1,000 ml IV TITRATE Sodium Chloride 0.9% [Saline Flush] Med 07/18/21 07:33 Active 10 ml FLUSH ASDIRECTED PRN Electronic Heart Tones Ext w TOCO [WOMSER] Oth 07/18/21 07:33 Ordered Routine Electronic Heart Tones Internal [WOMSER] Per Unit Oth 07/18/21 07:33 Ordered Routine Peripheral IV Insertion Adult [OM.PC] Routine Oth 07/18/21 07:33 Ordered Resuscitation Status Routine Resus Stat 07/18/21 07:33 Ordered Medication Orders Oxytocin/Lactated Ringer's (Pitocin In Lr 10 Units/1,000 Ml) 10 unit in 1,000 mls @ 12 mls/hr IV TITRATE CITLALLI; Protocol Oxytocin/Lactated Ringer's (Pitocin In Lr 10 Units/1,000 Ml) 10 unit in 1,000 mls @ 100 mls/hr IV .CONTINUOUS CITLALLI Lactated Ringer's (Ringers, Lactated) 1,000 mls @ 100 mls/hr IV ASDIRECTED CITLALLI Nalbuphine HCl (Nalbuphine 10 Mg/1 Ml Vial) 10 mg IVPUSH Q2H PRN PRN Reason: Pain Ondansetron HCl (Ondansetron 4 Mg/2 Ml Sdv) 4 mg IVPUSH Q4H PRN PRN Reason: Nausea/Vomiting Sodium Chloride (Sodium Chloride 0.9% 10 Ml Syringe) 10 ml FLUSH ASDIRECTED PRN PRN Reason: Keep Vein Open Assessment/Plan Comment:: * Labs to be done * GBS negative. * Alejo bulb placed. Currently declines pitocin * Reassess in a few hours * Pain management per patient preference
--- NOTE | 2021-07-18 13:27 | PCM.PNLD ---
Labor Progress Note - VS & Meds Vital Signs: Last Vital Signs Temp 36.9 C 07/18/21 08:04 Pulse 97 07/18/21 08:04 Resp 18 07/18/21 08:04 BP 124/78 07/18/21 08:04 Pulse Ox 98 07/18/21 08:04 Active Medications: Current Medications Oxytocin/Lactated Ringer's (Pitocin In Lr 10 Units/1,000 Ml) 10 unit in 1,000 mls @ 12 mls/hr IV TITRATE CITLALLI; Protocol Oxytocin/Lactated Ringer's (Pitocin In Lr 10 Units/1,000 Ml) 10 unit in 1,000 mls @ 100 mls/hr IV .CONTINUOUS CITLALLI Lactated Ringer's (Ringers, Lactated) 1,000 mls @ 100 mls/hr IV ASDIRECTED CITLALLI Nalbuphine HCl (Nalbuphine 10 Mg/1 Ml Vial) 10 mg IVPUSH Q2H PRN PRN Reason: Pain Ondansetron HCl (Ondansetron 4 Mg/2 Ml Sdv) 4 mg IVPUSH Q4H PRN PRN Reason: Nausea/Vomiting Sodium Chloride (Sodium Chloride 0.9% 10 Ml Syringe) 10 ml FLUSH ASDIRECTED PRN PRN Reason: Keep Vein Open - Uterine Contractions Uterine Monitoring Mode: External [place] Contraction Intensity: Irritability - Monitoring Monitor Mode: External Ultrasound Heart Rate (FHR) Baseline: 150 Heart Rate (FHR) Variability: Moderate (6-25 bpm) Accelerations: Present, 15x15 Decelerations: Variable Strip Review: Category II - Labor Progress (Free Text) Labor Progress: Doing well. Not feeling much with just Cook balloon in place. Wants to wait like 2 more hours and then if no different willing to start Pitocin
[2021-07-18] MEDS: Lactated Ringers 1,000 ML IV SCH ×3 (14:30→23:11)
--- NOTE | 2021-07-18 15:09 | PCM.PREANE ---
Preanesthetic Assessment - Procedure Proposed Procedure: leilani - Anesthesia/Transfusion/Family Hx Anesthesia History: Prior Anesthesia Without Reaction Family History of Anesthesia Reaction: No Transfusion History: No Prior Transfusion(s) Type of Transfusion Reactions: Reports: Unknown Intubation History: Unknown - Review of Systems General: No Symptoms Pulmonary: No Symptoms Cardiovascular: No Symptoms Gastrointestinal: No Symptoms Neurological: No Symptoms Other: Reports: None - Physical Assessment Vital Signs: Last Vital Signs Temp 98.5 F 07/18/21 08:04 Pulse 97 07/18/21 08:04 Resp 18 07/18/21 08:04 BP 124/78 07/18/21 08:04 Pulse Ox 98 07/18/21 08:04 Height: 5 ft 9 in Weight: 85.729 kg ASA Class: 2 Mental Status: Alert & Oriented x3 Airway Class: Mallampati = 1 Dentition: Reports: Normal Dentition Thyro-Mental Finger Breadths: 3 Mouth Opening Finger Breadths: 3 ROM/Head Extension: Full Lungs: Clear to Auscultation, Normal Respiratory Effort Cardiovascular: Regular Rate, Regular Rhythm - Lab Values: Laboratory Last Values WBC 8.89 K/mm3 (3.98-10.04) 07/18/21 08:26 RBC 3.68 M/mm3 (3.98-5.22) L 07/18/21 08:26 Hgb 11.9 gm/dl (11.2-15.7) D 07/18/21 08:26 Hct 35.9 % (34.1-44.9) 07/18/21 08:26 MCV 97.6 fl (79.4-94.8) H 07/18/21 08:26 MCH 32.3 pg (25.6-32.2) H 07/18/21 08:26 MCHC 33.1 g/dl (32.2-35.5) 07/18/21 08:26 RDW Std Deviation 45.1 fL (36.4-46.3) 07/18/21 08:26 Plt Count 176 K/mm3 (182-369) L 07/18/21 08:26 MPV 9.8 fl (9.4-12.3) 07/18/21 08:26 Neut % (Auto) 66.9 % (34.0-71.1) 07/18/21 08:26 Lymph % (Auto) 20.0 % (19.3-51.7) 07/18/21 08:26 Mower % (Auto) 10.1 % (4.7-12.5) 07/18/21 08:26 Eos % (Auto) 1.2 (0.7-5.8) 07/18/21 08:26 Baso % (Auto) 0.3 % (0.1-1.2) 07/18/21 08:26 Neut # (Auto) 5.94 K/mm3 (1.56-6.13) 07/18/21 08:26 Lymph # (Auto) 1.78 K/mm3 (1.18-3.74) 07/18/21 08:26 Mower # (Auto) 0.90 K/mm3 (0.24-0.36) H 07/18/21 08:26 Eos # (Auto) 0.11 K/mm3 (0.04-0.36) 07/18/21 08:26 Baso # (Auto) 0.03 K/mm3 (0.01-0.08) 07/18/21 08:26 SARS-CoV-2 RNA (EYAD) Negative (NEGATIVE) 07/18/21 08:54 Blood Type O POSITIVE 07/18/21 08:26 Gel Antibody Screen Negative 07/18/21 08:26 - Allergies Allergies/Adverse Reactions: Allergies Allergy/AdvReac Type Severity Reaction Status Date / Time No Known Allergies Allergy Verified 07/18/21 07:33 - Blood Blood Available: No - Acknowledgements Anesthesia Type Planned: Epidural Pt an Appropriate Candidate for the Planned Anesthesia: Yes Alternatives and Risks of Anesthesia Discussed w Pt/Guardian: Yes Pt/Guardian Understands and Agrees with Anesthesia Plan: Yes PreAnesthesia Questionnaire HEENT History: Reports: Impaired Vision Cardiovascular History: Reports: None Respiratory History: Reports: None Gastrointestinal History: Reports: GERD Genitourinary History: Reports: Other (See Below) Other Genitourinary History: urinary freqency/urgency feeling [employer] History: Reports: , Spontaneous : 4 Para: 2 Other OB/BYN History: C/S, AMA Neurological History: Reports: Migraines Psychiatric History: Reports: Depression Hematologic History: Reports: Anemia - Past Surgical History Female Surgical History: Reports: Section, Cystoscopy - SUBSTANCE USE Tobacco Use Status *Q: Former Tobacco User (5 years) Tobacco Use Within Last Twelve Months: No Second Hand Smoke Exposure: No Days Per Week of Alcohol Use: 0 Recreational Drug Use History: No - HOME MEDS Home Medications: Home Meds Fish Oil/[place]-3 Fatty Acids [Fish Oil 1,000 MG] 1 tab PO DAILY 07/18/17 [History] L.acidoph,Paracasei, B.lactis [Probiotic] 1 each PO DAILY 07/18/17 [History] Vits #93/Iron Fum/FA [ Formula Tablet] 1 tab PO DAILY 07/18/17 [History] Ferrous Sulfate 325 mg PO BIDMEALS #60 tablet 07/21/17 [Rx] Cholecalciferol (Vitamin D3) [Vitamin D3] 1 cap PO DAILY 07/18/21 [History] - CURRENT (IN HOUSE) MEDS Current Meds: Current Medications Oxytocin/Lactated Ringer's (Pitocin In Lr 10 Units/1,000 Ml) 10 unit in 1,000 m ls @ 12 mls/hr IV TITRATE CITLALLI; Protocol Last Admin: 07/18/21 14:31 Dose: 2 munits/min, 12 mls/hr Documented by: Oxytocin/Lactated Ringer's (Pitocin In Lr 10 Units/1,000 Ml) 10 unit in 1,000 mls @ 100 mls/hr IV .CONTINUOUS CITLALLI Lactated Ringer's (Ringers, Lactated) 1,000 mls @ 100 mls/hr IV ASDIRECTED CITLALLI Last Admin: 07/18/21 14:30 Dose: 100 mls/hr Documented by: Nalbuphine HCl (Nalbuphine 10 Mg/1 Ml Vial) 10 mg IVPUSH Q2H PRN PRN Reason: Pain Ondansetron HCl (Ondansetron 4 Mg/2 Ml Sdv) 4 mg IVPUSH Q4H PRN PRN Reason: Nausea/Vomiting Sodium Chloride (Sodium Chloride 0.9% 10 Ml Syringe) 10 ml FLUSH ASDIRECTED PRN PRN Reason: Keep Vein Open
[2021-07-18] MEDS ORDERED: ePHEDrine 50 MG/ML SDV IVPUSH PRN (20:46)
[2021-07-18] MEDS ORDERED: diphenhydrAMINE 50 MG/ML SDV IVPUSH PRN (20:46)
[2021-07-18] MEDS: fentaNYL 100 MCG/2 ML SDV EPIDUR PRN (20:57)
[2021-07-18] MEDS: Bupivacaine/fentaNYL/NS 100 ML Bag EPIDUR PRN (20:58)
--- NOTE | 2021-07-18 21:42 | PCM.PNLD ---
Labor Progress Note - VS & Meds Vital Signs: Last Vital Signs Temp 36.9 C 07/18/21 08:04 Pulse 97 07/18/21 08:04 Resp 18 07/18/21 08:04 BP 124/78 07/18/21 08:04 Pulse Ox 98 07/18/21 08:04 Active Medications: Current Medications Diphenhydramine HCl (Diphenhydramine 50 Mg/Ml Sdv) 25 mg IVPUSH Q6H PRN PRN Reason: pruritis Ephedrine Sulfate (Ephedrine 50 Mg/Ml Sdv) 5 mg IVPUSH ASDIRECTED PRN PRN Reason: Hypotension Fentanyl (Fentanyl 100 Mcg/2 Ml Sdv) 100 mcg EPIDUR Q3H PRN PRN Reason: Pain Last Admin: 07/18/21 20:57 Dose: 100 mcg Documented by: Fentanyl/Bupivacaine HCl (Bupivacaine/Fentanyl/Ns 100 Ml Bag) 100 ml EPIDUR ASDIRECTED PRN PRN Reason: Pain Last Admin: 07/18/21 20:58 Dose: 100 ml Documented by: Oxytocin/Lactated Ringer's (Pitocin In Lr 10 Units/1,000 Ml) 10 unit in 1,000 mls @ 12 mls/hr IV TITRATE CITLALLI; Protocol Last Titration: 07/18/21 19:45 Dose: 6 munits/min, 36 mls/hr Documented by: Oxytocin/Lactated Ringer's (Pitocin In Lr 10 Units/1,000 Ml) 10 unit in 1,000 mls @ 100 mls/hr IV .CONTINUOUS CITLALLI Lactated Ringer's (Ringers, Lactated) 1,000 mls @ 100 mls/hr IV ASDIRECTED CITLALLI Last Admin: 07/18/21 21:00 Dose: 999 mls/hr Documented by: Nalbuphine HCl (Nalbuphine 10 Mg/1 Ml Vial) 10 mg IVPUSH Q2H PRN PRN Reason: Pain Ondansetron HCl (Ondansetron 4 Mg/2 Ml Sdv) 4 mg IVPUSH Q4H PRN PRN Reason: Nausea/Vomiting Sodium Chloride (Sodium Chloride 0.9% 10 Ml Syringe) 10 ml FLUSH ASDIRECTED PRN PRN Reason: Keep Vein Open - Uterine Contractions Uterine Monitoring Mode: External [place] Contraction Intensity: Mild to Moderate - Monitoring Monitor Mode: External Ultrasound Heart Rate (FHR) Baseline: 140 Heart Rate (FHR) Variability: Moderate (6-25 bpm) Accelerations: Present, 15x15 Strip Review: Category I - Vaginal Exam Dilation (cm): 3 Effacement (Percent): 70 Station: -2 Cervical Position: Posterior - Labor Progress (Free Text) Labor Progress: Doing well. Pitocin at 8. Epidural in place. AROM performed. Continue present management
--- NOTE | 2021-07-19 01:47 | PCM.PNLD ---
Labor Progress Note - VS & Meds Vital Signs: Last Vital Signs Temp 36.9 C 07/18/21 08:04 Pulse 97 07/18/21 08:04 Resp 18 07/18/21 08:04 BP 124/78 07/18/21 08:04 Pulse Ox 98 07/18/21 08:04 Active Medications: Current Medications Diphenhydramine HCl (Diphenhydramine 50 Mg/Ml Sdv) 25 mg IVPUSH Q6H PRN PRN Reason: pruritis Ephedrine Sulfate (Ephedrine 50 Mg/Ml Sdv) 5 mg IVPUSH ASDIRECTED PRN PRN Reason: Hypotension Fentanyl (Fentanyl 100 Mcg/2 Ml Sdv) 100 mcg EPIDUR Q3H PRN PRN Reason: Pain Last Admin: 07/18/21 20:57 Dose: 100 mcg Documented by: Fentanyl/Bupivacaine HCl (Bupivacaine/Fentanyl/Ns 100 Ml Bag) 100 ml EPIDUR ASDIRECTED PRN PRN Reason: Pain Last Admin: 07/18/21 20:58 Dose: 100 ml Documented by: Oxytocin/Lactated Ringer's (Pitocin In Lr 10 Units/1,000 Ml) 10 unit in 1,000 mls @ 12 mls/hr IV TITRATE CITLALLI; Protocol Last Titration: 07/18/21 19:45 Dose: 6 munits/min, 36 mls/hr Documented by: Oxytocin/Lactated Ringer's (Pitocin In Lr 10 Units/1,000 Ml) 10 unit in 1,000 mls @ 100 mls/hr IV .CONTINUOUS CITLALLI Lactated Ringer's (Ringers, Lactated) 1,000 mls @ 100 mls/hr IV ASDIRECTED CITLALLI Last Admin: 07/18/21 23:11 Dose: 100 mls/hr Documented by: Nalbuphine HCl (Nalbuphine 10 Mg/1 Ml Vial) 10 mg IVPUSH Q2H PRN PRN Reason: Pain Ondansetron HCl (Ondansetron 4 Mg/2 Ml Sdv) 4 mg IVPUSH Q4H PRN PRN Reason: Nausea/Vomiting Sodium Chloride (Sodium Chloride 0.9% 10 Ml Syringe) 10 ml FLUSH ASDIRECTED PRN PRN Reason: Keep Vein Open - Uterine Contractions Uterine Monitoring Mode: External [place] Contraction Intensity: Moderate - Monitoring Monitor Mode: External Ultrasound Heart Rate (FHR) Baseline: 140 Heart Rate (FHR) Variability: Moderate (6-25 bpm) Accelerations: Present, 15x15 Decelerations: Variable Strip Review: Category II - Vaginal Exam Dilation (cm): 4 Effacement (Percent): 80 Station: -2 Cervical Position: Posterior - Labor Progress (Free Text) Labor Progress: Doing well. Pitocin was at 10, but decelerations noted with inability to categorize due to difficulty picking up contractions. Pitocin cut to 5 by RN. Presented and placed IUPC. FHR reassuring. Some early decelerations noted. Good Variability. Continue to move forward as planned
[2021-07-19] MEDS: Bupivacaine/fentaNYL/NS 100 ML Bag EPIDUR PRN (03:39)
[2021-07-19] MEDS: Lactated Ringers 1,000 ML IV SCH (03:40)
[2021-07-19] MEDS ORDERED: Lidocaine 1.5% with EPINEPHrine 1:200,000 5 ML Amp ONE (04:00)
[2021-07-19] MEDS ORDERED: Bupivacaine 0.25% 10 ML SDV ONE (04:00)
--- NOTE | 2021-07-19 06:34 | PCM.OPNOTE ---
- General Post-Op/Procedure Note Date of Surgery/Procedure: 07/19/21 Condition: Good Free Text/Narrative:: Intake & Output 07/18/21 07/18/21 07/19/21 14:59 22:59 06:59 Intake Total 120 1999 Balance 120 1999
[2021-07-19] MEDS: fentaNYL 100 MCG/2 ML SDV EPIDUR PRN (06:43)
--- NOTE | 2021-07-19 06:44 | PCM.PNLD ---
Labor Progress Note - VS & Meds Vital Signs: Last Vital Signs Temp 36.9 C 07/18/21 08:04 Pulse 97 07/18/21 08:04 Resp 18 07/18/21 08:04 BP 124/78 07/18/21 08:04 Pulse Ox 98 07/18/21 08:04 Active Medications: Current Medications Diphenhydramine HCl (Diphenhydramine 50 Mg/Ml Sdv) 25 mg IVPUSH Q6H PRN PRN Reason: pruritis Ephedrine Sulfate (Ephedrine 50 Mg/Ml Sdv) 5 mg IVPUSH ASDIRECTED PRN PRN Reason: Hypotension Fentanyl (Fentanyl 100 Mcg/2 Ml Sdv) 100 mcg EPIDUR Q3H PRN PRN Reason: Pain Last Admin: 07/18/21 20:57 Dose: 100 mcg Documented by: Fentanyl/Bupivacaine HCl (Bupivacaine/Fentanyl/Ns 100 Ml Bag) 100 ml EPIDUR ASDIRECTED PRN PRN Reason: Pain Last Admin: 07/19/21 03:39 Dose: 100 ml Documented by: Oxytocin/Lactated Ringer's (Pitocin In Lr 10 Units/1,000 Ml) 10 unit in 1,000 mls @ 12 mls/hr IV TITRATE CITLALLI; Protocol Last Titration: 07/19/21 04:50 Dose: 8 munits/min, 48 mls/hr Documented by: Oxytocin/Lactated Ringer's (Pitocin In Lr 10 Units/1,000 Ml) 10 unit in 1,000 mls @ 100 mls/hr IV .CONTINUOUS CITLALLI Lactated Ringer's (Ringers, Lactated) 1,000 mls @ 100 mls/hr IV ASDIRECTED CITLALLI Last Admin: 07/19/21 03:40 Dose: 100 mls/hr Documented by: Nalbuphine HCl (Nalbuphine 10 Mg/1 Ml Vial) 10 mg IVPUSH Q2H PRN PRN Reason: Pain Ondansetron HCl (Ondansetron 4 Mg/2 Ml Sdv) 4 mg IVPUSH Q4H PRN PRN Reason: Nausea/Vomiting Sodium Chloride (Sodium Chloride 0.9% 10 Ml Syringe) 10 ml FLUSH ASDIRECTED PRN PRN Reason: Keep Vein Open - Uterine Contractions Uterine Monitoring Mode: IUPC Contraction Intensity: Moderate to Strong - Monitoring Monitor Mode: External Ultrasound Heart Rate (FHR) Baseline: 135 Heart Rate (FHR) Variability: Moderate (6-25 bpm) Accelerations: Present, 15x15 Decelerations: Early, Variable Strip Review: Category I - Vaginal Exam Dilation (cm): 7-8 Effacement (Percent): 80 Station: 0 Cervical Position: Midposition - Labor Progress (Free Text) Labor Progress: Doing well. Feeling more pressure. Pitocin at 8. Has made good change, but will re-bolus epidural as feeling more uncomfortable
--- NOTE | 2021-07-19 08:56 | PCM.DEL ---
L & D Note - General Info Date of Service: 07/19/21 - Delivery Note Labor: Induced by ARM, Induced by Oxytocin Cervical Ripening Method: Balloon Device Delivery Outcome: Livebirth Infant Delivery Method: Spontaneous Vaginal Delivery-Single Infant Delivery Mode: Spontaneous Presentation: Left Occiput Anterior (GARY) Nuchal Cord: Present Anesthesia Type: Epidural Amniotic Fluid Description: Clear Episiotomy Type: None Laceration: 1st Degree, Vaginal Suture type: Vicryl Suture size: 2-0 Placenta: Intact, Spontaneous Cord: 3 Vessels Estimated Blood Loss: 350 Resuscitation Needed: Yes : Bulb Syringe, Stimulated, Warmed, [place] Used, Warmer Used Delivery Comments (Free Text/Narrative):: Patient found to be complete and began pushing. With maternal pushing effort head delivered from GARY presentation. Nuchal cord present, but tight and so not reduced. With gentle downward traction shoulders and body delivered. Infant placed on maternal abdomen. Cord clamped and cut. Cord blood obtained. Placenta allowed time to separate and expelled intact. Inspection of perineum showed 1st degree laceration repaired with running 2-0 Vicryl - General Info Date of Service: 07/19/21 - Patient Data Vitals - Most Recent: Last Vital Signs Temp 36.9 C 07/18/21 08:04 Pulse 97 07/18/21 08:04 Resp 18 07/18/21 08:04 BP 124/78 07/18/21 08:04 Pulse Ox 98 07/18/21 08:04 Weight - Most Recent: 85.729 kg I&O - Last 24 Hours: Intake & Output 07/18/21 07/19/21 07/19/21 22:59 06:59 14:59 Intake Total 1999 Balance 1999 - Exam Urinary Catheter Total Time: 0Days 1Hours - Problem List & Annotations (1) Post-dates SNOMED Code(s): 47749970 Code(s): O48.0 - POST-TERM Status: Acute Current Visit: Yes (2) History of delivery SNOMED Code(s): 779099874 Code(s): Z98.891 - HISTORY OF UTERINE SCAR FROM PREVIOUS SURGERY Status: Acute Current Visit: Yes (3) History of vaginal delivery SNOMED Code(s): 000882601 Code(s): TBY4262 - Status: Acute Current Visit: Yes (4) Desires (vaginal after ) trial SNOMED Code(s): 524540515, 208660817 Code(s): O34.219 - MATERNAL CARE FOR UNSP TYPE SCAR FROM PREVIOUS DEL Status: Acute Current Visit: Yes (5) , delivered, current hospitalization SNOMED Code(s): 276413646 Code(s): O34.219 - MATERNAL CARE FOR UNSP TYPE SCAR FROM PREVIOUS DEL Status: Acute Current Visit: Yes - Problem List Review Problem List Initiated/Reviewed/Updated: Yes - Assessment Assessment:: PPD#0 - Plan Plan:: * Routine cares * Breast feeding * Discharge home in 1-2 days
[2021-07-19] MEDS ORDERED: Witch Hazel Medicated Pads 40/Jar TOP PRN (11:49)
[2021-07-19] MEDS ORDERED: Benzocaine/Menthol 20%-0.5% Spray 78 GM Cannister TOP PRN (11:49)
[2021-07-19] MEDS ORDERED: Acetaminophen 325 MG Tab PO PRN (11:49)
[2021-07-19] MEDS ORDERED: Docusate Sodium 100 MG Cap PO PRN (11:49)
[2021-07-19] MEDS: Ibuprofen 600 MG Tab PO PRN ×2 (11:56→20:08)
[2021-07-20] MEDS: Ibuprofen 600 MG Tab PO PRN (03:22)
--- NOTE | 2021-07-20 06:49 | PCM.PNPP ---
- General Info Date of Service: 07/20/21 Functional Status: Reports: Pain Controlled, Tolerating Diet, Ambulating, Urinating - Review of Systems General: Reports: No Symptoms Pulmonary: Reports: No Symptoms Cardiovascular: Reports: No Symptoms Gastrointestinal: Reports: No Symptoms Genitourinary: Reports: No Symptoms Musculoskeletal: Reports: No Symptoms - General Info Date of Service: 07/20/21 - Patient Data Vital Signs - Most Recent: Last Vital Signs Temp 36.7 C 07/20/21 02:55 Pulse 78 07/20/21 02:55 Resp 14 07/20/21 02:55 BP 128/97 H 07/20/21 02:55 Pulse Ox 98 07/20/21 02:55 Weight - Most Recent: 85.729 kg I&O - Last 24 Hours: Intake & Output 07/19/21 07/19/21 07/20/21 14:59 22:59 06:59 Intake Total 3300 Output Total 1000 Balance 2300 Med Orders - Current: Current Medications Acetaminophen (Acetaminophen 325 Mg Tab) 650 mg PO Q4H PRN PRN Reason: mild pain or fever Benzocaine/Menthol (Benzocaine/Menthol 20%-0.5% [place] 78 Gm Cannister) 0 gm TOP ASDIRECTED PRN PRN Reason: Perineal Comfort Measure Last Admin: 07/19/21 11:54 Dose: 1 canister Documented by: Docusate Sodium (Docusate Sodium 100 Mg Cap) 100 mg PO BID PRN PRN Reason: Constipation Ibuprofen (Ibuprofen 600 Mg Tab) 600 mg PO Q6H PRN PRN Reason: Mild pain or fever Last Admin: 07/20/21 03:22 Dose: 600 mg Documented by: Ben Jauregui (Ben Jauregui Medicated Pads 40/Jar) 1 pad TOP ASDIRECTED PRN PRN Reason: Perineal Comfort Measure Last Admin: 07/19/21 11:55 Dose: 1 container Documented by: Discontinued Medications Bupivacaine HCl (Bupivacaine 0.25% 10 Ml Sdv) 20 ml .ROUTE .STK-MED ONE Stop: 07/19/21 04:01 Diphenhydramine HCl (Diphenhydramine 50 Mg/Ml Sdv) 25 mg IVPUSH Q6H PRN PRN Reason: pruritis Ephedrine Sulfate (Ephedrine 50 Mg/Ml Sdv) 5 mg IVPUSH ASDIRECTED PRN PRN Reason: Hypotension Fentanyl (Fentanyl 100 Mcg/2 Ml Sdv) 100 mcg EPIDUR Q3H PRN PRN Reason: Pain Last Admin: 07/19/21 06:43 Dose: 100 mcg Documented by: Fentanyl/Bupivacaine HCl (Bupivacaine/Fentanyl/Ns 100 Ml Bag) 100 ml EPIDUR ASDIRECTED PRN PRN Reason: Pain Last Admin: 07/19/21 03:39 Dose: 100 ml Documented by: Oxytocin/Lactated Ringer's (Pitocin In Lr 10 Units/1,000 Ml) 10 unit in 1,000 mls @ 12 mls/hr IV TITRATE CITLALLI; Protocol Last Titration: 07/19/21 05:30 Dose: 9 munits/min, 54 mls/hr Documented by: Oxytocin/Lactated Ringer's (Pitocin In Lr 10 Units/1,000 Ml) 10 unit in 1,000 mls @ 100 mls/hr IV .CONTINUOUS CITLALLI Last Admin: 07/19/21 09:16 Dose: 500 mls/hr Documented by: Lactated Ringer's (Ringers, Lactated) 1,000 mls @ 100 mls/hr IV ASDIRECTED CITLALLI Last Admin: 07/19/21 03:40 Dose: 100 mls/hr Documented by: Lidocaine/Epinephrine (Lidocaine 1.5% With Epinephrine 1:200,000 5 Ml Amp) 5 ml .ROUTE .Rapt ONE Stop: 07/19/21 04:01 Nalbuphine HCl (Nalbuphine 10 Mg/1 Ml Vial) 10 mg IVPUSH Q2H PRN PRN Reason: Pain Ondansetron HCl (Ondansetron 4 Mg/2 Ml Sdv) 4 mg IVPUSH Q4H PRN PRN Reason: Nausea/Vomiting Sodium Chloride (Sodium Chloride 0.9% 10 Ml Syringe) 10 ml FLUSH ASDIRECTED PRN PRN Reason: Keep Vein Open Tranexamic Acid (Tranexamic Acid 1,000 Mg/10 Ml Amp) Confirm Administered Dose 1,000 mg .ROUTE .Rapt ONE Stop: 07/19/21 08:48 Last Admin: 07/19/21 10:26 Dose: Not Given Documented by: - Interaction Disposition, : in Room with Family Interaction: Holding Infant Feeding: Attempted ; Nursed Fair/Poor Support Person: - Recovery Exam Fundal Tone: Firm Fundal Level: 1 Fingerbreadths Below Umbilicus Fundal Placement: Midline Lochia Amount: Small Lochia Color: Rubra/Red Perineum Description: Other (see below) Other Perinuem Description: 1st degree repaired Episiotomy/Laceration: Approximated Bladder Status: Voiding Urinary Elimination: Voided - Exam General: Alert, Oriented, Cooperative GI/Abdominal Exam: Soft, Non-Tender Extremities: Normal Inspection - Problem List & Annotations (1) Post-dates SNOMED Code(s): 12073098 Code(s): O48.0 - POST-TERM Status: Acute Current Visit: Yes (2) History of delivery SNOMED Code(s): 929928618 Code(s): Z98.891 - HISTORY OF UTERINE SCAR FROM PREVIOUS SURGERY Status: Acute Current Visit: Yes (3) History of vaginal delivery SNOMED Code(s): 146684383 Code(s): RCY2494 - Status: Acute Current Visit: Yes (4) Desires (vaginal after ) trial SNOMED Code(s): 724561500, 906466296 Code(s): O34.219 - MATERNAL CARE FOR UNSP TYPE SCAR FROM PREVIOUS DEL Status: Acute Current Visit: Yes (5) , delivered, current hospitalization SNOMED Code(s): 044501400 Code(s): O34.219 - MATERNAL CARE FOR UNSP TYPE SCAR FROM PREVIOUS DEL Status: Acute Current Visit: Yes - Problem List Review Problem List Initiated/Reviewed/Updated: Yes - My Orders Last 24 Hours: My Active Orders 07/19/21 Breakfast Regular Diet [DIET] 07/19/21 11:49 Acetaminophen [TylenoL] 650 mg PO Q4H PRN Benzocaine/Menthol [Dermoplast Pain Relief 20%-0.5% [place]] See Dose In structions TOP ASDIRECTED PRN Docusate Sodium [Colace] 100 mg PO BID PRN Ibuprofen [Motrin] 600 mg PO Q6H PRN witch Dayanna [Tucks] 1 pad TOP ASDIRECTED PRN Heat Therapy [OM.PC] PRN 07/19/21 11:49 Activity as Tolerated [RC] PER UNIT ROUTINE Up ad Manisha [RC] ASDIRECTED Vital Signs [RC] 03,09,15, Assess Lochia [WOMSER] Per Unit Routine Assess Uterine Involution [WOMSER] Per Unit Routine Breast Pump [WOMSER] Per Unit Routine Ice Therapy [OM.PC] Per Unit Routine Perineal Care [OM.PC] Per Unit Routine Peripheral IV Discontinue [OM.PC] Routine Sitz Bath [OM.PC] Per Unit Routine 07/20/21 06:43 Ready for Discharge [RC] PER UNIT ROUTINE 07/20/21 11:49 Heat Therapy [OM.PC] PRN - Assessment Assessment:: PPD#1 - Plan Plan:: * Routine cares * Breast feeding * Discharge home today
--- NOTE | 2021-07-20 06:49 | PCM.DCSUM1 ---
Discharge Summary - Discharge Data Discharge Date: 07/20/21 Discharge Disposition: Home, Self-Care 01 Condition: Good - Referral to Home Health Primary Care Physician: Delphine Carroll MD - Discharge Diagnosis/Problem(s) (1) Post-dates SNOMED Code(s): 16176941 ICD Code: O48.0 - POST-TERM Status: Acute Current Visit: Yes Qualifiers: Post-term type: 40-42 weeks gestation Qualified Code(s): O48.0 - Post-term (2) History of delivery SNOMED Code(s): 333673723 ICD Code: Z98.891 - HISTORY OF UTERINE SCAR FROM PREVIOUS SURGERY Status: Acute Current Visit: Yes (3) History of vaginal delivery SNOMED Code(s): 345960766 ICD Code: OFP5428 - Status: Acute Current Visit: Yes (4) Desires (vaginal after ) trial SNOMED Code(s): 665962436, 534113459 ICD Code: O34.219 - MATERNAL CARE FOR UNSP TYPE SCAR FROM PREVIOUS DEL Status: Acute Current Visit: Yes (5) , delivered, current hospitalization SNOMED Code(s): 259161933 ICD Code: O34.219 - MATERNAL CARE FOR UNSP TYPE SCAR FROM PREVIOUS DEL Status: Acute Current Visit: Yes - Patient Summary/Data Complications: None Consults: None Recommended Follow-up Testing/Procedures: Follow up in 3 weeks for check Hospital Course: 36 y/o at 40 1/7 wks presented for post dates IOL/TOLAC. Induction done with Cook balloon and pitocin. Eventually underwent AROM. Progressed well and underwent an uncomplicated . See delivery note. did well and was discharged home on PPD#1 - Patient Instructions Diet: Regular Diet as Tolerated Activity: As Tolerated Activity, Other: Pelvic rest for 6 weeks Driving: May Drive Today Showering/Bathing: May Shower Showering/Bathing, Other: May Bathe Notify Provider of: Fever, Increased Pain, Swelling and Redness, Drainage, Nausea and/or Vomiting - Discharge Plan *PRESCRIPTION DRUG MONITORING PROGRAM REVIEWED*: No *COPY OF PRESCRIPTION DRUG MONITORING REPORT IN PATIENT NAZIA: No Home Medications: Home Meds Fish Oil/[employer]year-3 Fatty Acids [Fish Oil 1,000 MG] 1 tab PO DAILY 07/18/17 [History] L.acidoph,Paracasei, B.lactis [Probiotic] 1 each PO DAILY 07/18/17 [History] Vits #93/Iron Fum/FA [ Formula Tablet] 1 tab PO DAILY 07/18/17 [History] Cholecalciferol (Vitamin D3) [Vitamin D3] 1 cap PO DAILY 07/18/21 [History] Docusate Sodium [Colace] 100 mg PO BID PRN cap 07/20/21 [Rx] Ibuprofen [Motrin] 600 mg PO Q6H PRN tablet 07/20/21 [Rx] Patient Handouts: and Inducing , Care After Vaginal Delivery Referrals: Delphine Carroll MD [Primary Care Provider] - (3 weeks for check ) - Discharge Summary/Plan Comment DC Time >30 min.: No Total # of Minutes for Discharge Time: 15 - Patient Data Vitals - Most Recent: Last Vital Signs Temp 36.7 C 07/20/21 02:55 Pulse 78 07/20/21 02:55 Resp 14 07/20/21 02:55 BP 128/97 H 07/20/21 02:55 Pulse Ox 98 07/20/21 02:55 Weight - Most Recent: 85.729 kg I&O - Last 24 hours: Intake & Output 07/19/21 07/19/21 07/20/21 14:59 22:59 06:59 Intake Total 3300 Output Total 1000 Balance 2300 Med Orders - Current: Current Medications Acetaminophen (Acetaminophen 325 Mg Tab) 650 mg PO Q4H PRN PRN Reason: mild pain or fever Benzocaine/Menthol (Benzocaine/Menthol 20%-0.5% [place] 78 Gm Cannister) 0 gm TOP ASDIRECTED PRN PRN Reason: Perineal Comfort Measure Last Admin: 07/19/21 11:54 Dose: 1 canister Documented by: Docusate Sodium (Docusate Sodium 100 Mg Cap) 100 mg PO BID PRN PRN Reason: Constipation Ibuprofen (Ibuprofen 600 Mg Tab) 600 mg PO Q6H PRN PRN Reason: Mild pain or fever Last Admin: 07/20/21 03:22 Dose: 600 mg Documented by: Ben Jauregui (Ben Jauregui Medicated Pads 40/Jar) 1 pad TOP ASDIRECTED PRN PRN Reason: Perineal Comfort Measure Last Admin: 07/19/21 11:55 Dose: 1 container Documented by: Discontinued Medications Bupivacaine HCl (Bupivacaine 0.25% 10 Ml Sdv) 20 ml .ROUTE .Deltagen ONE Stop: 07/19/21 04:01 Diphenhydramine HCl (Diphenhydramine 50 Mg/Ml Sdv) 25 mg IVPUSH Q6H PRN PRN Reason: pruritis Ephedrine Sulfate (Ephedrine 50 Mg/Ml Sdv) 5 mg IVPUSH ASDIRECTED PRN PRN Reason: Hypotension Fentanyl (Fentanyl 100 Mcg/2 Ml Sdv) 100 mcg EPIDUR Q3H PRN PRN Reason: Pain Last Admin: 07/19/21 06:43 Dose: 100 mcg Documented by: Fentanyl/Bupivacaine HCl (Bupivacaine/Fentanyl/Ns 100 Ml Bag) 100 ml EPIDUR ASDIRECTED PRN PRN Reason: Pain Last Admin: 07/19/21 03:39 Dose: 100 ml Documented by: Oxytocin/Lactated Ringer's (Pitocin In Lr 10 Units/1,000 Ml) 10 unit in 1,000 mls @ 12 mls/hr IV TITRATE CITLALLI; Protocol Last Titration: 07/19/21 05:30 Dose: 9 munits/min, 54 mls/hr Documented by: Oxytocin/Lactated Ringer's (Pitocin In Lr 10 Units/1,000 Ml) 10 unit in 1,000 mls @ 100 mls/hr IV .CONTINUOUS CITLALLI Last Admin: 07/19/21 09:16 Dose: 500 mls/hr Documented by: Lactated Ringer's (Ringers, Lactated) 1,000 mls @ 100 mls/hr IV ASDIRECTED CITLALLI Last Admin: 07/19/21 03:40 Dose: 100 mls/hr Documented by: Lidocaine/Epinephrine (Lidocaine 1.5% With Epinephrine 1:200,000 5 Ml Amp) 5 ml .ROUTE .Deltagen ONE Stop: 07/19/21 04:01 Nalbuphine HCl (Nalbuphine 10 Mg/1 Ml Vial) 10 mg IVPUSH Q2H PRN PRN Reason: Pain Ondansetron HCl (Ondansetron 4 Mg/2 Ml Sdv) 4 mg IVPUSH Q4H PRN PRN Reason: Nausea/Vomiting Sodium Chloride (Sodium Chloride 0.9% 10 Ml Syringe) 10 ml FLUSH ASDIRECTED PRN PRN Reason: Keep Vein Open Tranexamic Acid (Tranexamic Acid 1,000 Mg/10 Ml Amp) Confirm Administered Dose 1,000 mg .ROUTE .[facility] ONE Stop: 07/19/21 08:48 Last Admin: 07/19/21 10:26 Dose: Not Given Documented by:
== END 2021-07-20 11:15 | disposition home or self-care (01) | DRG 807 ==
LOC: JD.OBCHECK 07:13 → JD.OB 07:17 → OBSVTOIN 07-19 08:43 → JD.OB 07-19 08:44
PROVIDERS: ADMIT Obstetrics & Gynecology; ATTEND Obstetrics & Gynecology
PROC: 10E0XZZ Delivery of Products of Conception, External Approach (ICD-10-PCS; principal; 2021-07-19)
PROC: 10907ZC Drainage of Amniotic Fluid, Therapeutic from Products of Conception, Via Natural or Artificial Opening (ICD-10-PCS; 2021-07-19)
PROC: 0U7C7ZZ Dilation of Cervix, Via Natural or Artificial Opening (ICD-10-PCS; 2021-07-19)
PROC: 3E033VJ Introduction of Other Hormone into Peripheral Vein, Percutaneous Approach (ICD-10-PCS; 2021-07-19)
PROC: 3E0R3BZ Introduction of Anesthetic Agent into Spinal Canal, Percutaneous Approach (ICD-10-PCS; 2021-07-19)
PROC: 0HQ9XZZ Repair Perineum Skin, External Approach (ICD-10-PCS; 2021-07-19)
PROC: 10H07YZ Insertion of Other Device into Products of Conception, Via Natural or Artificial Opening (ICD-10-PCS; 2021-07-19)
PROC: 4A1HXCZ Monitoring of Products of Conception, Cardiac Rate, External Approach (ICD-10-PCS; 2021-07-19)
DX: O48.0 Post-term pregnancy (principal); Z37.0 Single live birth; Z3A.40 40 weeks gestation of pregnancy; Z79.899 Other long term (current) drug therapy; Z87.891 Personal history of nicotine dependence; O70.0 First degree perineal laceration during delivery; O69.81X0 Labor and delivery complicated by cord around neck, without compression, not applicable or unspecified; Z20.822 Contact with and (suspected) exposure to COVID-19
CPT/HCPCS: 36415; 51702; 59025; 59409; 85025; 86592; 86850; 86900; 86901; A9270-GY; C1726; J2590; J3010; J3490; J7120; U0002